=== PATIENT | male | born 1990 | race African-American/Black ===

== ENCOUNTER 2024-03-16 | Emergency (ER) | payer OTHER ==
[~2024-03-16] MED LIST: IBUP-2029 MT; METH-653 MT
[2024-03-16 00:36] VITALS: PULSE 86; O2SAT 98
== END 2024-03-16 01:45 | disposition left against medical advice (07) ==
LOC: ER
DX: N28.89 Other specified disorders of kidney and ureter (principal); Z53.21 Procedure and treatment not carried out due to patient leaving prior to being seen by health care provider
CPT/HCPCS: Z7610 ×2